=== PATIENT | female | born 1945 | race Caucasian/White ===

== ENCOUNTER 2017-09-04 10:26 | Emergency (ER) | payer MEDICARE ==
--- NOTE | 2017-09-04 10:56 | ER Document Report ---
ED Fall - General Chief Complaint: Fall Injury Stated Complaint: FALL/LEG PAIN Time Seen by Provider: 09/04/17 10:53 Mode of Arrival: Ambulatory Information source: Patient, Relative Notes: Patient presents with right knee pain. About 1 week ago patient fell on some uneven ground and suffered any injury. Since that time he has been swollen and painful. Patient can ambulate although with some pain. Patient has dementia so some history is obtained from the . The pain has been constant and mild to moderate. It does radiate up her leg. It is worse with movement and better with rest. There is no other significant injuries in the fall. TRAVEL OUTSIDE OF THE [place] IN LAST 30 DAYS: No - Related data Allergies/Adverse Reactions: No Known Allergies Allergy (Verified 09/04/17 10:26) Past Medical History - General Information source: Patient - Social History Smoking Status: Unknown if Ever Smoked Frequency of alcohol use: None Drug Abuse: None Lives with: Spouse/Significant other Family History: Reviewed & Not Pertinent Review of Systems - Review of Systems -: Yes ROS unobtainable due to patient's medical condition - Patient has dementia Physical Exam - Vital signs Vitals: Temp Pulse Resp BP Pulse Ox 97.5 F 59 L 16 124/57 L 99 09/04/17 10:46 09/04/17 10:46 09/04/17 10:46 09/04/17 10:46 09/04/17 10:46 Interpretation: Normal - General General appearance: Appears well, Alert - HEENT Head: Normocephalic, Atraumatic Eyes: Normal Pupils: PERRL - Respiratory Respiratory status: No respiratory distress Chest status: Nontender Breath sounds: Normal Chest palpation: Normal - Cardiovascular Rhythm: Regular Heart sounds: Normal auscultation Murmur: No - Abdominal Inspection: Normal Distension: No distension Bowel sounds: Normal Tenderness: Nontender Organomegaly: No organomegaly - Back Back: Normal, Nontender - Extremities General upper extremity: Normal inspection, Nontender, Normal color, Normal ROM , Normal temperature General lower extremity: Tender, Normal temperature, Other - Right knee is diffusely tender and swollen with a moderate effusion. No: Jade's sign - Neurological Neuro grossly intact: Yes Cognition: Confused Orientation: AAOx4, Disoriented to place, Disoriented to time Zeenat Coma Scale Eye Opening: Spontaneous Zeenat Coma Scale Verbal: Oriented [place] Coma Scale Motor: Obeys Commands Zeenat Coma Scale Total: 15 Speech: Normal Motor strength normal: LUE, RUE, LLE Sensory: Normal - Psychological Associated symptoms: Normal affect, Normal mood - Skin Skin Temperature: Warm Skin Moisture: Dry Skin Color: Normal Course - Vital Signs Vital signs: Temp Pulse Resp BP Pulse Ox 97.5 F 59 L 16 124/57 L 99 09/04/17 10:46 09/04/17 10:46 09/04/17 10:46 09/04/17 10:46 09/04/17 10:46 - Diagnostic Test Radiology reviewed: Image reviewed, Reports reviewed - No fracture or dislocation on x-ray Discharge - Discharge Clinical Impression: Contusion of knee, right Qualifiers: Encounter type: initial encounter Qualified Code(s): S80.01XA - Contusion of right knee, initial encounter Condition: Stable Disposition: HOME, SELF-CARE Instructions: Contusion ([facility]) Additional Instructions: You have any knee bruise or contusion. Continue to use the brace that you are wearing. Please call orthopedics as soon as possible to arrange follow-up. Your blood pressure is mildly elevated. Please have this rechecked in 1 week by your provider. Forms: Elevated Blood Pressure Referrals: ALIDA ARRIETA MD [ACTIVE STAFF] - Follow up in 3-5 days
--- NOTE | 2017-09-04 11:53 | RADIOLOGY REPORT (SQ) ---
EXAM DESCRIPTION: KNEE RIGHT 4 VIEWS COMPLETED DATE/TIME: 09/04/2017 11:35 am REASON FOR STUDY: fall COMPARISON: None. NUMBER OF VIEWS: Four views. TECHNIQUE: AP, lateral, and both oblique radiographic images acquired of the right knee. LIMITATIONS: None. FINDINGS: MINERALIZATION: Normal. BONES: A total knee arthroplasty good position. No fracture or dislocation JOINT: No effusion. SOFT TISSUES: No soft tissue swelling. No radio-opaque foreign body. OTHER: No other significant finding. IMPRESSION: Total knee arthroplasty. No acute abnormality. TECHNICAL DOCUMENTATION: JOB ID: [id number] [employer]- All Rights Reserved
[2017-09-04 12:32] VITALS: BP 121/58
== END 2017-09-04 12:26 | disposition home or self-care (01) ==
LOC: ER 10:26
DX: S80.01XA Contusion of right knee, initial encounter (principal); M25.461 Effusion, right knee; M25.561 Pain in right knee; X58.XXXA Exposure to other specified factors, initial encounter; F03.90 Unspecified dementia, unspecified severity, without behavioral disturbance, psychotic disturbance, mood disturbance, and anxiety
CPT/HCPCS: 99283